=== PATIENT | female | born 1955 | race African-American/Black ===

== ENCOUNTER 2018-09-18 10:42 | Day surgery (SDC) | payer MEDICARE, BC ==
[~2018-09-18] VITALS: Ht 162.6 cm; Wt 76.7 kg
--- NOTE | ~2018-09-18 | OP ---
PATIENT NAME: JEMAL JIMÉNEZ MEDICAL RECORD: [id number] :51 LOCATION:.[facility] ADMISSION DATE: SURGEON: YANIQUE MANUEL DATE OF OPERATION: 09/18/2018 SURGEON: Yanique Manuel DPM PREOPERATIVE DIAGNOSES: 1. Hallux abductovalgus deformity, right foot. 2. Metatarsal deformity, third metatarsal, right foot. 3. Hammertoe, second toe, right foot. 4. Hammertoe, third toe, right foot. 5. Hammertoe, fourth toe, right foot. 6. Hammertoe, fifth toe, right foot. POSTOPERATIVE DIAGNOSES: 1. Hallux abductovalgus deformity, right foot. 2. Metatarsal deformity, third metatarsal, right foot. 3. Hammertoe, second toe, right foot. 4. Hammertoe, third toe, right foot. 5. Hammertoe, fourth toe, right foot. 6. Hammertoe, fifth toe, right foot. PROCEDURES: 1. Clayton-Jose bunionectomy, right foot. 2. Clalie osteotomy, third metatarsal, right foot. 3. Flexor tenotomy, second toe, right foot. 4. Flexor tenotomy, third toe, right foot. 5. Flexor tenotomy, fourth toe, right foot. 6. Flexor tenotomy, fifth toe, right foot. ANESTHESIA: General. HEMOSTASIS: Pneumatic ankle tourniquet inflated to 250 mmHg. MATERIALS: One 2.5-mm headless Dart-Fire screw, one 9-mm Quick staple, one 2 x 10-mm headed Dart-Fire screw (all Apokalyyis). INJECTABLES: 30 mL of 0.5% bupivacaine. The patient has long-standing history of the above-mentioned deformities. We have discussed the proposed procedures. Risks and benefits were reviewed. Complications were discussed. All questions were answered. She was appropriately consented for the above-mentioned procedures. DESCRIPTION OF PROCEDURE: The patient was brought to the operating room and placed on the operating table in supine position. A time-out was called with Dr. Manuel, who identified the patient, the surgical site, and the surgery to be performed. Once appropriate anesthesia was obtained, the foot was prepped and draped in the usual aseptic manner. The pneumatic ankle tourniquet was inflated to 250 mmHg around the well-padded right ankle. PROCEDURE #1: Clayton-Jose bunionectomy, right foot. Attention was directed to OPERATIVE REPORT [id number] JEMAL JIMÉNEZ the dorsal aspect of the first metatarsophalangeal joint, where a 6-cm curvilinear incision was made. This incision was made just medial to the extensor hallucis longus tendon. This incision was carried deep to soft tissue with care being taken to retract all vital neurovascular structures. All bleeders were cauterized along the way. Through this incision, the first intermetatarsal space was entered utilizing both sharp and blunt dissection. The conjoined tendon of the adductor hallucis tendon was identified at the base of the proximal phalanx and sharply transected. Attention was then directed further proximally to the level of fibular sesamoidal ligament. This was also sharply transected. Attention was then redirected to the dorsal aspect of the joint, where the periosteum was reflected from the head of the first metatarsal and the base of the proximal phalanx, thus exposing the joint and the hypertrophied medial eminence of the first metatarsal. Utilizing a sagittal saw, the hypertrophied medial eminence was resected. Next, utilizing a sagittal saw, a V-shaped osteotomy was created in the head of the metatarsal. This was a V-shaped osteotomy with the apex oriented distally. It was a wnorcqs-ogm-nhvonue osteotomy. The capital fragment was translocated laterally and impacted upon the first metatarsal shaft. Next, utilizing [employer] boss's recommended technique, one 2.5-mm screw was placed across the osteotomy. Excellent fixation was noted after placement of the screw. All remaining overhanging bone from the medial aspect of the first metatarsal shaft was resected with a bone saw. Attention was then directed to the base of the proximal phalanx, where a V-shaped osteotomy was created with the apex oriented medially. The wedge of bone was removed from the osteotomy and the osteotomy was reduced. Next, utilizing [employer] boss's recommended technique, one Quick-Fire staple was placed across the osteotomy. The toe was noted to rest in a more rectus position after removal of the wedge of bone and application of the staple. The surgical site was then irrigated with copious amounts of normal sterile saline via bulb syringe. The periosteum was then reapproximated and coapted utilizing 3-0 Vicryl. The subcutaneous was then reapproximated and coapted using 3-0 Vicryl. The skin was reapproximated and coapted using 4-0 nylon. PROCEDURE #2: Callie osteotomy, third metatarsal, right foot. Attention was directed to third metatarsophalangeal joint, where a 4-cm linear incision was made. This incision was carried deep to soft tissue with care being taken to retract all vital neurovascular structures. All bleeders were cauterized along the way. The periosteum was then reflected from the head of the third metatarsal. Next, utilizing a sagittal saw, an osteotomy was created in the head of the third metatarsal. This was a jcagtrz-ltr-rhqtjho osteotomy and it ran from dorsal distal to proximal plantar. The capital fragment was shifted proximally and temporarily fixated with a K-wire. Next, utilizing [employer] boss's recommended technique, one 2-0 screw was placed across the osteotomy. All remaining over hanging bone from the dorsal aspect of the third metatarsal was resected with a rongeur. The surgical site was then irrigated with copious amounts of normal sterile saline via bulb syringe. The periosteum was reapproximated and coapted using 3-0 Vicryl. The subcutaneous was reapproximated and coapted using 3-0 Vicryl. The skin was reapproximated OPERATIVE REPORT [id number] JEMAL JIMÉNEZ and coapted using 4-0 nylon. PROCEDURE #3: Flexor tenotomy, second toe, right foot. A #15 blade was used to make a small stab incision on the plantar midline of the digit at the level of the PIPJ. The blade was then rotated 90 degrees and swept [id number], severing the flexor tendon at this level. The digit was noted to be in a rectus position after transection of the tendon. A full release was noted. One simple interrupted suture was then placed across the incision. PROCEDURE #4: Flexor tenotomy, third toe, right foot. The exact same procedure that was performed on the second toe of the right foot was performed without exception to the third toe of the right foot. PROCEDURE #5: Flexor tenotomy, fourth toe, right foot. The exact same procedure that was performed on the second and third toes of the right foot was performed on the fourth toe of the right foot without exception. PROCEDURE #6: Flexor tenotomy, fifth toe, right foot. The exact same procedure that was performed on toes #2, #3, and #4 of the right foot was performed on the fifth toe of the right foot without exception. The patient tolerated the procedures and the anesthesia well. She left the operating room with vital signs stable and capillary refill time intact. The patient was discharged home with instructions to ice and elevate the right foot. A dressing consisting of Xeroform, 4 x 4's, Kerlix, and Favian bandage was applied to the right foot. The pneumatic ankle tourniquet was deflated and capillary refill time was immediate to all digits of the right foot. The patient was discharged home with instructions to ice and elevate the right foot. She is to wear the boot at all times when ambulating. She was provided with a prescription for [place] 7.5/325, ibuprofen 800 mg, and Phenergan 25 mg. She was provided with my cell phone number for any afterhours difficulties and there were no complications with this procedure. We will follow up with her in one week. TRANSINT:[id number] Voice Confirmation ID: [id number] DOCUMENT ID: [id number] YANIQUE MANUEL CC: [id number] DICTATION DATE: 09/18/18 1517 DOUGHNUT FRYER: 09/18/18 1630 [facility] [address] [id number]
[~2018-09-18 10:42] MED LIST: HCTZ25 MG PO; LIPITOR10 MG PO; NORVASC10 MG PO
[2018-09-18 11:19] LABS: HEMATOCRIT 35.1 % (36.0-48.0); HEMOGLOBIN 11.8 g/dL (12-16); MCH 29.7 pg (26.0-34.0); MCHC 33.6 g/dL (31.0-37.0); MCV 88.4 fL (80.0-100.0); MEAN PLATELET VOLUME 9.5 fL (7.4-10.4); RBC 3.97 10x6/uL (4.00-5.40); RDW 14.2 % (11.5-14.5); WBC 3.7 10x3/uL (4.8-10.8)
[2018-09-18 11:30] VITALS: BP 136/81; Ht 162.6 cm; Wt 76.7 kg
== END 2018-09-18 17:00 | disposition home or self-care (01) ==
LOC: D.OPS 10:42 → D.PAN 12:45 → D.OPS 13:00 → D.PAN 13:15 → D.OPS 13:15
PROVIDERS: Anesthesiology; ATTEND Podiatrist
DX: M20.11 Hallux valgus (acquired), right foot (principal); M21.6X1 Other acquired deformities of right foot; M20.41 Other hammer toe(s) (acquired), right foot; Z01.812 Encounter for preprocedural laboratory examination

== ENCOUNTER 2019-12-24 16:22 | Emergency (ER) | payer OTHER ==
[~2019-12-24] VITALS: Ht 162.6 cm; Wt 75.9 kg
[2019-12-24 16:26] VITALS: BP 153/90; Ht 162.6 cm; Wt 75.9 kg
[2019-12-24 16:54] LABS: BASOPHILS 0.5 % (0-2); EOSINOPHILS 2.7 % (0-7); HEMATOCRIT 38.2 % (36.0-48.0); HEMOGLOBIN 12.6 g/dL (12-16); LYMPHOCYTES 41.1 % (15-50); MCH 29.9 pg (26.0-34.0); MCV 90.7 fL (80.0-100.0); MEAN PLATELET VOLUME 9.2 fL (7.4-10.4); MONOCYTES 12.9 % (2-11); NEUTROPHILS 42.8 % (40-80); RBC 4.21 10x6/uL (4.00-5.40); RDW 13.5 % (11.5-14.5); WBC 3.7 10x3/uL (4.8-10.8)
[2019-12-24 16:56] LABS: PLATELET COUNT 289 10x3/uL (130-400)
[2019-12-24 17:07] LABS: ALBUMIN 4.1 g/dL (3.4-5.0); ANION GAP 6.9 mmol/L (8-16); BILIRUBIN - TOTAL 0.46 mg/dL (0.2-1.3); CALCIUM 9.2 mg/dL (8.5-10.1); CREATININE - SERUM 1.1 mg/dL (0.6-1.3); PROTEIN - SERUM 8.8 g/dL (6.4-8.2)
[2019-12-24 17:52] LABS: POTASSIUM - SERUM 2.9 mmol/L (3.5-5.1)
[2019-12-24 18:08] LABS: BACTERIA MANY HPF (NONE SEEN); BILIRUBIN NEGATIVE (NEGATIVE); EPITHELIAL CELLS 0-5 /hpf (0-5); KETONE NEGATIVE (NEGATIVE); NITRITE POSITIVE (NEGATIVE); UROBILINOGEN NORMAL mg/dL (< 2); WHITE CELLS - URINE 0-5 HPF (0-4)
[2019-12-24] MEDS ORDERED: TYLENOL W/CODEI1 TAB PO (18:11)
[2019-12-24] MEDS ORDERED: KEFLEX500 MG PO (18:12)
== END 2019-12-24 20:00 | disposition home or self-care (01) ==
LOC: D.ER 16:22
PROVIDERS: Family Medicine
DX: R94.4 Abnormal results of kidney function studies (principal); R74.8 Abnormal levels of other serum enzymes; S09.90XA Unspecified injury of head, initial encounter; R73.9 Hyperglycemia, unspecified; E87.6 Hypokalemia; S52.202A Unspecified fracture of shaft of left ulna, initial encounter for closed fracture; X58.XXXA Exposure to other specified factors, initial encounter; N39.0 Urinary tract infection, site not specified; I10 Essential (primary) hypertension